=== PATIENT | female | born 1985 | race Caucasian/White ===

== ENCOUNTER 2018-04-21 21:10 | Emergency (ER) | payer OTHER ==
[2018-04-21 21:30] VITALS: TEMP 98.2; O2SAT 99
[2018-04-21 21:47] LABS: BASOPHILS % (AUTO) 0 % (0-3); EOSINOPHILS % (AUTO) 0 % (0-9); HEMATOCRIT 40 % (35-47); HEMOGLOBIN 13.7 gm/dl (12.0-15.5); LYMPHOCYTES % (AUTO) 8.1 % (10-50); MEAN CORPUSCULAR HEMOGLOBIN 30.3 pg (27.0-32.0); MEAN CORPUSCULAR HGB CONC 34.2 gm/dl (32.0-36.0); MEAN CORPUSCULAR VOLUME 89 fL (81-99); MONOCYTES % (AUTO) 3.1 % (0-12); NEUTROPHILS % (AUTO) 88.1 % (37-80)
[2018-04-21 21:50] LABS: APPEARANCE,URINE Clear; BILIRUBIN,URINE NEGATIVE (NEGATIVE); COLOR,URINE Yellow; GLUCOSE, URINE (UA) NEGATIVE (NEGATIVE); KETONES,URINE TRACE (NEGATIVE); LEUKOCYTE ESTERASE ,URINE TRACE (NEGATIVE); NITRATE,URINE NEGATIVE (NEGATIVE); OCCULT BLOOD,URINE NEGATIVE (NEG-TRACE); PH,URINE 6.5; UROBILINOGEN,URINE 0.2 (0.2-1.0 EU)
[2018-04-21] MEDS ORDERED: IBUPROFEN 600 MG TAB PO ONE (21:58)
[2018-04-21 22:04] LABS: ALBUMIN 3.9 gm/dl (3.4-5.0); BILIRUBIN,TOTAL 0.3 mg/dl (0.2-1.0); CALCIUM 8.1 mg/dl (8.5-10.1); CARBON DIOXIDE 24.8 mEq/L (21-32); CREATININE 0.73 mg/dl (0.60-1.00); POTASSIUM 4.4 mMol/L (3.5-5.1); TOTAL PROTEIN 6.8 gm/dl (6.4-8.2)
[2018-04-21] MEDS ORDERED: IBUPROFEN 600 MG TAB ONE (22:06)
[2018-04-21 22:22] LABS: BACTERIA TRACE (< 1+); CRYSTALS NEGATIVE (0-3 AVE/HPF); EPITHELIAL CELLS NEGATIVE (SQUAMOUS); RBC,URINE NEGATIVE (0-3AV/HPF); WBC,URINE 0-4 (0-5AV/HPF)
[2018-04-21 23:29] VITALS: BP 114/78; PULSE 96; RESP 19
== END 2018-04-21 22:34 | disposition home or self-care (01) | DRG 101 ==
LOC: ED 21:10
DX: G40.909 Epilepsy, unspecified, not intractable, without status epilepticus (principal); E87.1 Hypo-osmolality and hyponatremia; R40.2362 Coma scale, best motor response, obeys commands, at arrival to emergency department; R40.2142 Coma scale, eyes open, spontaneous, at arrival to emergency department; R40.2252 Coma scale, best verbal response, oriented, at arrival to emergency department
CPT/HCPCS: 36415; 80053; 81001; 85025; 87088; 99283; 99284; A9270-GY